=== PATIENT | male | born 1990 ===

== ENCOUNTER 2018-12-06 12:04 | Outpatient (CLI) | payer OTHER | END 2018-12-06 12:05 | disposition home or self-care (01) | LOC: C.LAB 12:04 → C.RADH 12:05 | DX: R05 Cough (principal) ==

== ENCOUNTER 2018-12-20 08:45 | Outpatient (CLI) | payer OTHER | END 2018-12-20 08:46 | disposition home or self-care (01) | LOC: C.LAB 08:45 | DX: Z00.00 Encounter for general adult medical examination without abnormal findings (principal) ==